=== PATIENT | male | born 1990 | race African-American/Black ===

== ENCOUNTER 2018-04-02 12:49 | Emergency (ER) | payer MEDICARE, MEDICAID ==
[~2018-04-02] VITALS: Ht 188 cm; Wt 152.0 kg
[~2018-04-02 12:49] MED LIST: IBUPROFEN 800800 M1 PO
[2018-04-02 14:35] VITALS: BP 154/70
== END 2018-04-02 14:36 | disposition home or self-care (01) ==
LOC: M.ERS 12:49
DX: S93.491A Sprain of other ligament of right ankle, initial encounter (principal); W01.0XXA Fall on same level from slipping, tripping and stumbling without subsequent striking against object, initial encounter; Y93.89 Activity, other specified; Y92.89 Other specified places as the place of occurrence of the external cause; Y99.8 Other external cause status

== ENCOUNTER 2018-09-01 15:57 | Inpatient (IN) | payer MEDICARE, MEDICAID ==
[~2018-09-01] VITALS: Ht 188 cm; Wt 164.7 kg
--- NOTE | ~2018-09-01 | CON ---
[address] [address] CONSULTATION Name: NORMA US Room: [address] IN .R.#: [id number] Admission: 09/01/18 Attend Phys: Amalia Davis Discharge: Date of : 86 Report #: [id number] THIS REPORT FOR: //name// CC: [facility] physician/PCP Jhonny Moore DICTATED BY: Sulema Mosnivais [facility] DATE OF SERVICE: 09/02/2018 The patient does not have a PCP. Please note at the time of this dictation, the patient was seen and physically examined by myself. REASON FOR CONSULTATION: Abnormal CT findings. HISTORY OF PRESENT ILLNESS: This is a 28-year-old male who has developmental delays who lives with his aunt who is his caregiver. The patient was having complaints of lightheadedness and headache, which he had been having for a few days, which his aunt says. He never complains about anything. He did not mention anything to her about his abdominal pain, which he states he has been having for a few days. He also has noticed that he has had more loose stools, but no bright red blood in his stools. He has had some urgency in going to the bathroom, but no accidents and he has had to get up in the middle of the night to use the restroom to have a bowel movement as well. He states normally his bowels will go a couple of times a day, but this is more than usual plus with having the pain. His main complaint for coming in was headache and his dizziness. ALLERGIES: No known drug allergies. MEDICATIONS: From home is the amlodipine. PAST MEDICAL HISTORY: Appears hypertension and developmentally delayed. PAST SURGICAL HISTORY: Negative. FAMILY HISTORY: Negative for any GI or female cancers. No autoimmune diseases. SOCIAL HISTORY: Denies any alcohol, tobacco or illegal drug use and currently lives with his aunt who is his caregiver. REVIEW OF SYSTEMS: Twelve-point review of systems is essentially negative except what is [place] [address] CONSULTATION Name: NORMA US Room: [address] IN [facility]#: [id number] Admission: 09/01/18 Attend Phys: Amalia Davis Discharge: Date of : 86 Report #: [id number] PHYSICAL EXAMINATION: VITAL SIGNS: Temperature 36.6, pulse 95, respirations 18, blood pressure 133/70. HEART: Regular rate and rhythm. LUNGS: Clear. ABDOMEN: Soft, positive bowel sounds in all 4 quadrants with tenderness noted in the lower quadrant area, left greater than right. LABORATORY DATA: Hemoglobin 15.1, white count 9.6, platelets 370. PT 12.3, INR 1.2, BUN is 31, creatinine 1.9, GFR is 51. CRP is 141.3 and ESR is 48. LFTs are completely normal. CT of the abdomen and pelvis shows moderate inflammation in the ascending and proximal transverse colon with some possible at the terminal ileum, likely for inflammatory bowel disease, otherwise negative. IMPRESSION: 1. Abdominal pain. 2. Increased stooling. 3. Nocturnal stooling. 4. Abnormal CT findings in the descending and proximal transverse. 5. Developmentally delayed. PLAN: 1. Colonoscopy tomorrow. 2. We will start prep with clear liquids today. 3. Further recommendations to be made once the procedure has been performed. Thank you for allowing us to participate in this patient's care. Please do not hesitate to call with any questions in regard to this consult. ADDENDUM: I have personally seen and examined the patient and reviewed labs and imaging. The patient who presents with change in bowel habits and diarrhea has abnormal CT showing thickening of the colon in the left colon. The patient denies any hematochezia, but has elevated CRP and sed rate. We will perform a colonoscopy tomorrow to rule out inflammatory bowel disease. Meanwhile, we will continue the current regimen. By: [id number] Amador MD /[place]
[2018-09-01 16:05] VITALS: BP 129/69
[2018-09-01] MEDS ORDERED: NORVASC5 MG PO (16:08)
[2018-09-01 16:36] LABS: ABSOLUTE BASOPHILS 0.1 thou/uL (0.0-0.2); ABSOLUTE EOSINOPHILS 0.2 thou/uL (0.0-0.7); ABSOLUTE LYMPHOCYTES 2.7 thou/uL (0.8-5.3); ABSOLUTE MONOCYTES 0.6 thou/uL (0.0-1.2); ABSOLUTE NEUTROPHILS 6.1 thou/uL (1.6-8.1); EOSINOPHILS 1.7 %; HEMOGLOBIN 15.1 gm/dL (14.0-18.0); LYMPHOCYTES 27.5 %; MCH 28.7 pg (26.0-34.0); MCHC 34.3 g/dL (28.0-37.0); MCV 83.7 fL (80.0-100.0); MONOCYTES 6.5 %; MPV 8.3 fl. (7.2-11.1); NUCLEATED RBCS 0 /100WBC; PLATELET COUNT* 370 thou/uL (150-400); POLYS 63.3 %; RBC 5.25 mil/uL (4.50-6.00); RDW-CV 13.3 % (10.5-14.5); WBC 9.6 thou/uL (4.0-11.0)
[2018-09-01 17:09] LABS: CALCIUM 8.7 mg/dL (8.5-10.1); CREATININE 2.7 mg/dL (0.6-1.3); POTASSIUM 3.7 mmol/L (3.5-5.1)
[2018-09-01 17:19] LABS: ALBUMIN 3.8 g/dL (3.4-5.0); TOTAL BILIRUBIN 0.7 mg/dL (<0.1-1.0); TOTAL PROTEIN 8.7 g/dL (6.4-8.2)
[2018-09-01 19:18] LABS: URINE BILIRUBIN NEGATIVE (Negative); URINE BLOOD TRACE (Negative); URINE CLARITY CLEAR; URINE COLOR YELLOW; URINE GLUCOSE-RANDOM NEGATIVE (Negative); URINE KETONES NEGATIVE (Negative); URINE LEUKOCYTES-REFLEX NEGATIVE (Negative); URINE NITRITE-REFLEX NEGATIVE (Negative); URINE PROTEIN 1+ (Negative); URINE SPECIFIC GRAVITY 1.025 (1.005-1.030); URINE UROBILINOGEN 0.2 E.U./dl (0.2-1.0)
[2018-09-01 19:28] LABS: AMP/METHAMP Negative (Negative); BARBITURATES Negative (Negative); BENZODIAZEPINES Negative (Negative); COCAINE Negative (Negative); METHADONE Negative (Negative); OPIATES Negative (Negative); PCP Negative (Negative); THC Negative (Negative)
[2018-09-01 20:18] LABS: APTT 31.5 Seconds (25.0-31.3); INR 1.2; PROTIME 12.3 Seconds (9.20-11.50)
[2018-09-01 21:00] VITALS: BP 154/83
[2018-09-01 21:30] VITALS: BP 134/75
[2018-09-02] VITALS: BP 139/84
[2018-09-02 04:00] VITALS: BP 128/65
--- NOTE | 2018-09-02 06:38 | NUR ---
RECEIVED REPORT FROM ACTIVITY LEADER TACOS AT 2047. PT ARRIVED TO UNIT AT 2099. PT AAOX4, AUNT AT BEDSIDE. WHIZZER OPERATOR IN PLACE, TRACING SINUS TACHYCARDIA/SINUS RHYTHM. PRN PAIN MEDICATION ADMINISTERED X1 THIS SHIFT. SEE EMAR FOR DOCUMENTATION. PT RESTED WELL THIS SHIFT. HOURLY ROUNDING COMPLETED. NEGATIVE SEPSIS SCREENING. CALL LIGHT WITHIN REACH.
--- NOTE | 2018-09-02 08:30 | NUR ---
RECEIVED REPORT AND ASSUMED CARE OF PT AT 0730.PT IS A/OX4.TRACING SR ON THE MONITOR.IV PATENT WITH IV FLUIDS AND ANTIBIOTIC INFUSING.COMPLAINTS OF PAIN ,MANAGED WITH MEDS.UA AND STOOL SAMPLE COLLECTED.NO COMPLAINTS OF NUSEA AND VOMITING AT THE MOMENT.GI CONS TO BE DONE TODAY.ON REGULAR DIET.NO SKIN ISSUES.CALL LIGHT AND FALL PRECAUTIONS IN PLACE .WILL CONTINUE TO MONITOR.
[2018-09-02 08:37] VITALS: BP 133/70
[2018-09-02 10:13] LABS: CALCIUM 8.6 mg/dL (8.5-10.1); CREATININE 1.9 mg/dL (0.6-1.3); MAGNESIUM 2.1 mg/dL (1.8-2.4); POTASSIUM 4.3 mmol/L (3.5-5.1)
--- NOTE | 2018-09-02 10:30 | EKG ---
[place] [address] ELECTROCARDIOGRAM REPORT Name: NORMA US Room: [address] IN [facility]#: [id number] Admission: 09/01/18 Attend Phys: Amalia Davis Discharge: Date of : 86 Report #: [id number] THIS REPORT FOR: //name// [facility] ED Test Date: 2018-09-01 Test Time: 20:11:50 Pat Name: NORMA SAMUELSNTON Department: Room: Formerly Named [facility] Gender: Small Business Consultant: SAUNDRA : 1990 Requested By: Pepe Mercer Order Number: [id number] MD: Theo Jacob Measurements Intervals [place] Rate: 110 P: 53 ME: 162 QRS: 231 QRSD: 96 T: 28 QT: 360 QTc: 488 Interpretive Statements Sinus tachycardia nonspecific t wave changes Borderline prolonged QT interval No previous ECG available for comparison Electronically Signed On 09-02-2018 10:30:06 CDT by Theo Jacob [email or web address] <ELECTRONICALLY SIGNED> By: Theo Jacob MD, [facility] 09/02/18 1030 10 10 Theo Jacob MD, FACC /EPI
[2018-09-02 10:48] LABS: URINE CHLORIDE-RANDOM* 67 mmol/L; URINE POTASSIUM-RANDOM 59.2 mmol/L
[2018-09-02 12:08] VITALS: BP 136/76
--- NOTE | 2018-09-02 14:12 | NUR ---
Pt was sound asleep when CM went to assess, will f/u later
--- NOTE | 2018-09-02 16:51 | NUR ---
VSS.TRACING SR ON THE MONITOR.ON RA.NO COMPLAINTS OF PAIN AT THE MOMENT.PLAN COLONOSCOPY FOR TOMORROW.BOWEL PREP STARTED PER ORDER.CLEAR LIQUID DIET.STOOL AND URINE SAMPLE COLLECTED.UP AD ROWENA.ANTIBIOTIC GIVEN PER ORDER.NPO FROM MIDNIGHT FOR COLONOSCOPY.CALL LIGHT AND FALL PRECAUTIONS IN PLACE.WILL CONTINUE TO MONITOR.
[2018-09-02 17:18] VITALS: BP 148/93
--- NOTE | 2018-09-02 18:25 | NUR ---
I have reviewed the documentation by JORDYN BLOUNT from 729 to 1825 and I concur with it.
[2018-09-02 20:00] VITALS: BP 123/83
[2018-09-03 00:30] VITALS: BP 133/74
[2018-09-03 02:09] LABS: GLYCOHEMOGLOBIN (HGB A1C) 4.9 % (4.8-5.6)
[2018-09-03 04:00] VITALS: BP 127/77
[2018-09-03 05:33] LABS: HEMATOCRIT 32.8 % (42.0-52.0); MCH 27.7 pg (26.0-34.0); MCHC 32.4 g/dL (28.0-37.0); MCV 85.6 fL (80.0-100.0); MPV 8.7 fl. (7.2-11.1); RBC 3.83 mil/uL (4.50-6.00); RDW-CV 14.6 % (10.5-14.5); WBC 12.2 thou/uL (4.0-11.0)
[2018-09-03 05:45] LABS: HEMOGLOBIN 10.6 gm/dL (14.0-18.0)
[2018-09-03 06:15] LABS: CALCIUM 8.4 mg/dL (8.5-10.1); CREATININE 1.5 mg/dL (0.6-1.3); MAGNESIUM 2.3 mg/dL (1.8-2.4); POTASSIUM 3.5 mmol/L (3.5-5.1)
--- NOTE | 2018-09-03 07:33 | NUR ---
ASSUMED PT CARE AT 1930. NURSING ASSESSMENT COMPLETED AT START OF SHIFT. PT DENIES PAIN THIS SHIFT. SR ON DYNAMICS AX TECHNICAL ARCHITECT. TAP WATER ENEMA ADMINISTERED AT 0700 THIS MORNING. STOOL OBSERVED TO BE CLEAR YELLOW/GREEN. CALL LIGHT REMEAINS WITHIN REACH.
[2018-09-03 08:00] VITALS: BP 129/75
[2018-09-03] MEDS ORDERED: MIRALAX17 GM PO (10:06)
[2018-09-03] MEDS ORDERED: CIPRO500 MG PO (10:06)
[2018-09-03] MEDS ORDERED: METRONIDAZOLE500 M4 PO (10:06)
--- NOTE | 2018-09-03 10:14 | NUR ---
ASSUMED CARE OF PT AT 0730. PT RESTING IN BED. PT NPO FOR COLONOSCOPY THIS AM. CONSENT SIGNED AND PLACED IN FRONT OF CHART. PT A&0X4, FLAT AFFECT NOTED. PT DENIES ANY PAIN OR SHORTNESS OF BREATH AT THIS TIME. PT TRACING SR ON THE RETAIL LEADER. ON RA SAT UPPER 90'S. PT UP AD ROWENA IN ROOM. IVF. PT GOAL FOR TODAY IS COMPLETE COLONOSCOPY AND DISCHARGE PLANNING PENDING COLONOSCOPY RESULTS. AM ASSESSMENT CHARTED. MEDICATIONS PER JUN. PT REPOSITIONS SELF. HOURLY ROUNDING OBSERVED. BED IN LOW POSITION. CALL LIGHT WITHIN REACH. WILL CONTINUE PLAN OF CARE.
[2018-09-03 10:33] VITALS: BP 129/75
[2018-09-03 10:39] VITALS: BP 129/75
--- NOTE | 2018-09-03 14:34 | NUR ---
PT HAD COLONOSCOPY TODAY. REFER TO RESULTS. DISCHARGE ORDERS RECEIVED. DISCHARGE INSTRUCTIONS, CARE NOTES, SCRIPTS AND FOLLOW UP APPTS GIVEN TO PT. PT AND PT AUNT COMMUNICATE UNDERSTANDING OF DISCHARGE TEACHING. IV AND DESIGN CONSULTANT REMOVED. PT DISCHARGED WITH ALL BELONGINGS AND PAPERWORK VIA WHEELCHAIR WITH [employer] TO AUNT OWN PERSONAL VEHICLE.
--- NOTE | 2018-09-04 15:06 | PATH ---
[address] [address] PATHOLOGY RPT PROCEDURE Name: NORMA US Room: [address] IN ..#: [id number] Admission: 09/01/18 Date of : 86 Discharge: 09/03/18 Report #: [id number] Path Case #: [id number] [facility] Accession Number: [id number] . 01 Material submitted: . PART A: colon - RIGHT COLON BIOPSY. Modifiers: right PART B: colon - LEFT COLON BIOPSY. Modifiers: left . 02 Diagnosis: A. Right colon biopsy: - Diffuse severe active colitis, negative for granulomas, viral inclusions, and dysplasia. See comment. . B. Left colon biopsy: - Diffuse mild active colitis, negative for granulomas, viral inclusions and dysplasia. See comment. (ANA PAULA:pit 09/04/2018) QTP/09/04/2018 . 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 He had been medicating with NSAIDs. . The biopsies show benign colonic mucosa with similar active inflammatory features seen much more apparent in the right colon biopsies (A) without pseudomembranes. Scattered fresh hemorrhage is present and, in the right colon biopsies, scattered areas of superficial crypt atrophy suggests ischemia. Each of the biopsies do not show significant basal lymphoplasmacytosis or crypt distortion, features typically seen with inflammatory bowel disease and in particular with this degree of active inflammation and therefore the histologic findings suggest another primary etiology. The differential would include infectious colitis, ischemic colitis, and/or use of non-steroidal anti-inflammatory agents. (ANA PAULA:pit 09/04/2018) . 02 Electronically signed: . Martir Galindo MD, Pathologist NPI- [id number] . 01 Gross description: . A. The specimen is received in formalin, labeled "Norma Us, right colon, biopsy", are multiple irregular fragments of mascorro soft tissues measuring 0.7 x 0.3 x 0.1 cm in aggregate, entirely submitted in A1. . B. The specimen is received in formalin, labeled "Nomra Us, left colon, biopsy", are several irregular fragments [place] [address] PATHOLOGY RPT PROCEDURE Name: NORMA US Room: [address] IN [facility]#: [id number] Admission: 09/01/18 Date of : 86 Discharge: 09/03/18 Report #: [id number] Path Case #: [id number] measuring 0.5 x 0.4 x 0.1 cm in aggregate, entirely submitted in B1. (SWS; 09/03/2018) . . . . . . . . . . SHS/ . Pathologist provided ICD-10: K52.9 . 02 CPT . 342863, 228176 Specimen Comment: A courtesy copy of this report has been sent to Specimen Comment: [phone], . Specimen Comment: Report sent to / DR MARIN Performed at: [address] [facility], [place] [id number] MD Garrett Alves MD Phone: [phone] Performed at: [facility] [address], [place], [place] [id number] MD Martir Galindo MD Phone: [phone]
== END 2018-09-03 14:38 | disposition home or self-care (01) | DRG 385 ==
LOC: M.ERS 15:57 → M.TBA-ER 19:35 → M.2W 19:35
PROVIDERS: Internal Medicine; Physician Assistant; ADMIT Internal Medicine
PROC: 0DBL8ZX Excision of Transverse Colon, Via Natural or Artificial Opening Endoscopic, Diagnostic (ICD-10-PCS; principal; 2018-09-03)
PROC: 0DBH8ZX Excision of Cecum, Via Natural or Artificial Opening Endoscopic, Diagnostic (ICD-10-PCS; principal; 2018-09-03)
PROC: 0DBK8ZX Excision of Ascending Colon, Via Natural or Artificial Opening Endoscopic, Diagnostic (ICD-10-PCS; principal; 2018-09-03)
DX: K50.00 Crohn's disease of small intestine without complications (principal); N17.0 Acute kidney failure with tubular necrosis; Z68.41 Body mass index [BMI] 40.0-44.9, adult; K52.3 Indeterminate colitis; I10 Essential (primary) hypertension; E66.9 Obesity, unspecified; R62.59 Other lack of expected normal physiological development in childhood; K64.8 Other hemorrhoids; K57.30 Diverticulosis of large intestine without perforation or abscess without bleeding; G43.909 Migraine, unspecified, not intractable, without status migrainosus; T39.395A Adverse effect of other nonsteroidal anti-inflammatory drugs [NSAID], initial encounter; Y92.89 Other specified places as the place of occurrence of the external cause

== ENCOUNTER 2020-02-17 14:27 | Emergency (ER) | payer MEDICARE, MEDICAID ==
[~2020-02-17] VITALS: Ht 188 cm; Wt 154.2 kg
[~2020-02-17 14:27] MED LIST changes: +CIPRO500 MG PO; +METRONIDAZOLE500 M4 PO; +MIRALAX17 GM PO; +NORVASC5 MG PO
[2020-02-17] MEDS ORDERED: LISINOPRIL2.5 MG (14:43)
[2020-02-17] MEDS ORDERED: METFORMIN HCL500 M3 PO (14:43)
[2020-02-17 15:25] LABS: ABSOLUTE BASOPHILS 0.1 thou/uL (0.0-0.2); ABSOLUTE EOSINOPHILS 0.1 thou/uL (0.0-0.7); ABSOLUTE LYMPHOCYTES 3.4 thou/uL (0.8-5.3); ABSOLUTE MONOCYTES 1.2 thou/uL (0.0-1.2); ABSOLUTE NEUTROPHILS 4.1 thou/uL (1.6-8.1); BASOPHILS 0.6 %; EOSINOPHILS 1.5 %; HEMATOCRIT 33.3 % (42.0-52.0); HEMOGLOBIN 10.9 gm/dL (14.0-18.0); LYMPHOCYTES 38.3 %; MCH 27.4 pg (26.0-34.0); MCHC 32.6 g/dL (28.0-37.0); MONOCYTES 13.2 %; MPV 7.1 fl. (7.2-11.1); NUCLEATED RBCS 0 /100WBC; PLATELET COUNT* 399 thou/uL (150-400); POLYS 46.4 %; RBC 3.96 mil/uL (4.50-6.00); RDW-CV 15.6 % (10.5-14.5); WBC 8.9 thou/uL (4.0-11.0)
[2020-02-17 15:41] LABS: CALCIUM 9.4 mg/dL (8.5-10.1); CREATININE 1.7 mg/dL (0.6-1.3); POTASSIUM 4.4 mmol/L (3.5-5.1)
[2020-02-17 15:45] LABS: ALBUMIN 3.9 g/dL (3.4-5.0); TOTAL BILIRUBIN 0.4 mg/dL (<0.1-1.0)
[2020-02-17] MEDS ORDERED: IBUPROFEN 800800 M1 PO (17:35)
[2020-02-17] MEDS ORDERED: NORCO 5-325 TA1 EAC2 PO (17:35)
[2020-02-17 18:00] VITALS: BP 146/72
== END 2020-02-17 18:01 | disposition home or self-care (01) ==
LOC: M.ERS 14:27
PROVIDERS: Emergency Medicine Emergency Medical Services
DX: M10.032 Idiopathic gout, left wrist (principal); M10.022 Idiopathic gout, left elbow; M25.432 Effusion, left wrist; M25.422 Effusion, left elbow; I10 Essential (primary) hypertension